=== PATIENT | female | born 1965 | race Caucasian/White ===

== ENCOUNTER 2025-03-28 07:51 | Inpatient (IN) ==
[2025-03-28 08:10] LABS: ABG O2 HGB 71.7 % (95-100); ABG PCO2 44.0 mmHg (35-45); ABG PH 7.36 (7.35-7.45); BEecf -0.5 (-2.0-3.0); FI02 21.0 %; HCO3 24.9 (21-28); TCO2 26.3 (19-24)
[2025-03-28 08:11] LABS: ABG PO2 41.0 mmHg (85-100)
[2025-03-28] MEDS: LEVAQUIN 500 MG/100 ML D5W 500 MG/100 ML BAG IV ONE (08:11)
[2025-03-28] MEDS: SOLU-MEDROL 125 MG IVP ONE (08:11)
[2025-03-28] MEDS: DUONEB NEB STA (08:16)
[2025-03-28 08:19] LABS: IMMATURE GRANULOCYTE # (AUTO) 0.1 (0.0-1.0); IMMATURE GRANULOCYTE % (AUTO) 0.7 % (0.0-5.0); RDW COEFFICIENT OF VARIATION 14.4 % (11.6-14.8)
[2025-03-28 08:38] LABS: CREATININE 1.39 mg/dL (0.60-1.30)
--- NOTE | 2025-03-28 08:43 | DI ---
EXAM: CHEST RADIOGRAPH TECHNIQUE: Single frontal chest radiograph. HISTORY: COPD. COMPARISON: Chest with ribs study of 01/01/2022. FINDINGS: Lungs are hyperinflated and hyperlucent. Prominent interstitial markings are likely chronic. No nodule or mass or consolidation. No free air below the diaphragm. Heart does appear prominent and similar. Mediastinum is normal. Airway is patent and midline. There is no pleural effusion. There is no pneumothorax. Postoperative changes of the humeral head on the right. There are bony degenerative changes of the spine and shoulders and AC joints. No acute bony abnormality is seen. IMPRESSION: 1. Mild cardiac enlargement is similar to prior. 2. Lungs are hyper inflated and hyperlucent. Prominent interstitial markings likely chronic. No well-defined infiltrate or new acute process otherwise. Details and other findings, as above.
[2025-03-28] MEDS: SODIUM CHLORIDE 1,000 ML IV ONE ×3 (08:53→15:36)
[2025-03-28] MEDS: VISIPAQUE 320 MG/ML 100ML IVP ONE (09:43)
[2025-03-28 09:45] LABS: SARS COV-2 RNA RAPID NAAT NEGATIVE (NEGATIVE)
--- NOTE | 2025-03-28 10:21 | ED.PDOC ---
General HPI ED Provider: Dr. MELANIE BHAKTA MD Chief Complaint: Shortness of Air Stated Complaint: 59 years old female history of hypertension, COPD, emergency room for shortness of breath. Patient reports that she had been feeling short of breath have gotten progressively worse over the last couple days so she comes emergency room for evaluation. Patient denies any fever, chest pain no nausea or vomiting no changes in bowel or urine. Time Seen by Provider: 03/28/25 07:59 Information Source: Patient Nursing and Triage Documentation Reviewed and Agree: Yes Opioid Naive vs. Tolerant What is Opioid Naive?: *Opioid Naive implies the patient is not already taking opioids or not chronically receiving opioids on a daily basis. *PRN dosing is not "usually" associated with tolerance. *Patients are at higher risk of over-sedation and aspiration. What is Opioid Tolerant?: *Opioid Tolerance implies less than the expected response to an opioid. *Acquired tolerance is defined by the patient taking 60mg of oral morphine daily (or equianalgesic dose of another opioid) for 1 week or more. *Often associated with chronic pain. *May take more than usual dose to achieve desired pain control. Review of Systems Review Of Systems Constitutional: Reports No symptoms All Other Systems: Reviewed and Negative Physical Exam Physical Exam Appearance: Reports Ill-appearing Ill-appearing: Mild Respiratory: Reports Breath sounds diminished and Wheezes Cardiovascular: Reports RRR, Pulses normal, No rub and No murmur GI/: Reports Soft, Nontender, No masses and Bowel sounds normal Musculoskeletal: Reports Normal strength and ROM intact Skin: Reports Warm and Normal color Neurological: Reports Sensation intact, Motor intact and Reflexes intact Psychiatric: Reports Affect appropriate Interpretation EKG Interpretation EKG Interpretation By: ED Physician Time of EKG #1: 08:26 Rate: Normal Rhythm: Sinus Ectopy: None [place]: NL ST Segment: Normal Interpretation: NO SINGS OF ACUTE ISCHEMIA Course Course 03/28/25 08:13 03/28/25 08:13 Orders, Labs, Meds: Lab Review 03/28/25 03/28/25 03/28/25 08:07 08:13 08:50 WBC 16.02 H RBC 4.70 Hgb 13.3 Hct 41.4 MCV 88.1 MCH 28.3 MCHC 32.1 RDW Coeff of Sammie 14.4 Plt Count 306 Immature Gran % (Auto) 0.7 Neut % (Auto) 81.8 H Lymph % (Auto) 7.6 L Kerr % (Auto) 9.0 Eos % (Auto) 0.2 Baso % (Auto) 0.7 Neut # (Auto) 13.1 H Lymph # (Auto) 1.2 Kerr # (Auto) 1.4 Eos # (Auto) 0.0 Baso # (Auto) 0.1 Immature Gran # (Auto) 0.1 Puncture Site [place] Excess -0.5 O2 Saturation 73.9 L ABG pH 7.36 ABG pCO2 44.0 ABG pO2 41.0 L* ABG HCO3 24.9 ABG Total CO2 26.3 H Flash Test Pos Hemoglobin 1.5 Oxyhemoglobin 71.7 L Carboxyhemoglobin 4.9 H Total Hemoglobin 13.8 FiO2 % 21.0 Sodium 128.9 L Potassium 3.96 Chloride 86.2 L Carbon Dioxide 29.1 Anion Gap 17.56 BUN 30.3 H Creatinine 1.39 H Estimated GFR (MDRD) 39.00 BUN/Creatinine Ratio 21.79 Glucose 158.2 H Calcium 9.51 Total Bilirubin 0.64 AST 41.8 H ALT 30.4 Alkaline Phosphatase 147.8 H Troponin I 0.025 NT-Pro-B Natriuret Pep 1710 H Total Protein 8.15 Albumin 4.51 Globulin 3.64 Albumin/Globulin Ratio 1.23 SARS CoV-2 RNA Rapid MARIE 03/28/25 09:25 WBC RBC Hgb Hct MCV MCH MCHC RDW Coeff of Sammie Plt Count Immature Gran % (Auto) Neut % (Auto) Lymph % (Auto) Kerr % (Auto) Eos % (Auto) Baso % (Auto) Neut # (Auto) Lymph # (Auto) Kerr # (Auto) Eos # (Auto) Baso # (Auto) Immature Gran # (Auto) Puncture Site Base Excess O2 Saturation ABG pH ABG pCO2 ABG pO2 ABG HCO3 ABG Total CO2 Flash Test Hemoglobin Oxyhemoglobin Carboxyhemoglobin Total Hemoglobin FiO2 % Sodium Potassium Chloride Carbon Dioxide Anion Gap BUN Creatinine Estimated GFR (MDRD) BUN/Creatinine Ratio Glucose Calcium Total Bilirubin AST ALT Alkaline Phosphatase Troponin I NT-Pro-B Natriuret Pep Total Protein Albumin Globulin Albumin/Globulin Ratio SARS CoV-2 RNA Rapid MARIE Negative Orders Category Date Time Status ABG DRAW REQUEST Stat CARDIO 03/28/25 08:00 Completed EKG-(ED ONLY) Stat CARDIO 03/28/25 08:08 Completed NEBULIZER TREATMENT Stat CARDIO 03/28/25 07:59 Completed NPO REMINDER: IMAGING ONCE CARE 03/28/25 09:22 Active IV [ED IV/MEDIPORT/POWERPORT] .ONCE EMERGENCY 03/28/25 07:59 Active ABG COOX Stat LAB 03/28/25 08:07 Completed CBC W/ AUTO DIFF Stat LAB 03/28/25 08:13 Completed CMP [COMPREHENSIVE METABOLIC PANEL] Stat LAB 03/28/25 08:13 Completed PROBNP ED [NT-PROBNP(ED)] Stat LAB 03/28/25 08:50 Completed SARS COV-2 RNA RAPID MARIE Stat LAB 03/28/25 09:25 Completed TROPONIN I Stat LAB 03/28/25 08:13 Completed 0.9 % Sodium Chloride [Saline Flush] Meds 03/28/25 07:59 Active 1 syr IVF PRN PRN Iodixanol [Visipaque 320 mg/ml 100Ml] Meds 03/28/25 09:42 Discontinued 100 ml IVP ONCE ONE Ipratropium/Albuterol Neb [Duoneb] Meds 03/28/25 07:59 Discontinued 3 ml NEB ONCE STA Levofloxacin/D5w [Levaquin 500 mg/100 ml D5w] Meds 03/28/25 08:06 Discontinued 500 mg in 100 ml IV ONCE Methylprednisolone Sod Succ/Pf [Solu-Medrol 125 mg] Meds 03/28/25 07:59 Discontinued 125 mg IVP ONCE ONE Sodium Chloride 0.9% [Sodium Chloride] 1,000 ml Meds 03/28/25 08:47 Discontinued IV BOLUS CTA CHEST PE PROTOCOL Stat RADS 03/28/25 09:21 Ordered CXR [CHEST, 1V AP ONLY] Stat RADS 03/28/25 07:59 Completed Medications Generic Name Dose Route Start Last Admin Trade Name Freq PRN Reason Stop Dose Admin Sodium Chloride 1 syr 03/28/25 07:59 03/28/25 08:53 0.9% Sodium Chloride 10 Ml Disp.Syrin IVF 1 syr PRN PRN Administration To flush IV Discontinued Medications Generic Name Dose Route Start Last Admin Trade Name Freq PRN Reason Stop Dose Admin Albuterol/Ipratropium 3 ml 03/28/25 07:59 03/28/25 08:16 Ipratropium/Albuterol Vial.Neb NEB 03/28/25 08:00 3 ml ONCE STA Administration Levofloxacin/Dextrose 500 mg in 100 mls @ 100 mls/hr 03/28/25 08:06 03/28/25 08:11 Levaquin 500 Mg/100 Ml D5w IV 03/28/25 09:05 100 mls/hr ONCE ONE Administration Sodium Chloride 1,000 mls @ 1,000 mls/hr 03/28/25 08:47 03/28/25 08:53 Sodium Chloride IV 03/28/25 09:46 1,000 mls/hr BOLUS ONE Administration Iodixanol 100 ml 03/28/25 09:42 03/28/25 09:43 Iodixanol 320 Mg/Ml 100ml IVP 03/28/25 09:43 100 ml ONCE ONE Administration Methylprednisolone Sodium Succinate 125 mg 03/28/25 07:59 03/28/25 08:11 Methylprednisolone Sod Succ/Pf 125 Mg/2 Ml Vial IVP 03/28/25 08:00 125 mg ONCE ONE Administration Vital Signs: Temp Pulse Resp BP Pulse Ox O2 Flow Rate 03/28/25 08:30 4 03/28/25 08:00 2 03/28/25 07:59 99.0 F 103 H 33 H 109/69 57 L Patient with COPD exacerbation, chest x-ray did not show any acute cardiopulmonary disease, hyperinflated lungs consistent with COPD as per otology interpretation. Patient also showing some signs of dehydration and hyponatremia NEY she received 500 cc of NS bolus. Patient received Solu-Medrol, DuoNeb nebulizer treatment and 500 mg of Levaquin. Spoke with hospitalist on-call Plac[facility] to admit patient for further management to recommend to get a CTA of the chest to rule out PE which was ordered received a call from radiology that the CT is negative for PE but there is some infectious process concerning for pneumonia. Results were discussed with the hospitalist and she agreed to make the patient under our services for further management. Discharge Plan Discharge Patient Disposition: PLACED OBSERVATION Discharge Problem: Pneumonia, Acute exacerbation of chronic obstructive pulmonary disease (COPD) Did you review [place] [employer] for ALL controlled substances?: Not Applicable ED Provider: MELANIE BHAKTA Condition: Stable
--- NOTE | 2025-03-28 10:41 | CT ---
EXAM: CHEST CTA WITH CONTRAST (PULMONARY ARTERY) HISTORY: Hypoxia. Tachycardia. Shortness of breath. TECHNIQUE: CTA acquisition of the chest from the thoracic inlet to the upper abdomen following IV contrast administration timed to filling of the pulmonary artery. IV Contrast: 70 mL Visipaque 320 administered. 3D/MIP/VR images were utilized. CT Dose Reduction Techniques Employed: Yes. COMPARISON: Chest x-ray of 03/28/2025. CT thoracic spine 01/01/2022. FINDINGS: Pulmonary Embolism: - Diagnostic quality: Adequate. - Central (Main/Lobar/Interlobar): No embolus. - Peripheral (Segmental/Subsegmental): Mild motion artifact does limit some of the subsegmental vessels within the upper lungs bilaterally. No other evidence for segmental or subsegmental embolism. - Right ventricle/Left ventricle ratio: Normal. Lines, Tubes, Devices: None. Lung Parenchyma and Airways: Airway is patent and midline. There may be some thickening of the airways to the lower lobes bilaterally. No filling defect or obstruction. Numerous tree in bud opacities are seen throughout the lungs bilaterally. Mild atelectasis at least at the lung bases bilaterally. Calcified granuloma in the lower lung on the left. Atelectatic type change or Possible scarring within the anterior upper lung on the last on some atelectasis or minimal infiltrate within the lingula. There is some atelectasis or minimal infiltrate anterior upper lung on the range. This is also seen within the lower lung on the right. A well-defined stand alone nodule is not seen. No other consolidation or evidence for mass. Pleural Space: No pleural effusion or thickening. No pneumothorax. Thoracic Inlet, Mediastinum, and [place]: The thyroid demonstrates Possible calcification on the left. Please correlate clinically and with nonemergent thyroid ultrasound. The esophagus appears to be overall within normal limits and is contracted. There is a trace fat-containing hiatal hernia. There are numerous abnormal lymph nodes within the chest. 1 of the anus in the subcarinal region measures 2.6 x 1.5 cm. There is also 1 within the hilar region on the right measuring 2.3 x 2.2 cm. There are other hilar lymph nodes mature borderline to mildly prominent. Pretracheal lymph node on the right measures 1.7 cm. AP window lymph node is prominent on the left 1.0 x 3.5 cm. These could be reactive and should be correlated clinically. Heart, Vessels, and Pericardium: The thoracic aorta is not dilated. Grade vessels appear within normal limits. Atherosclerotic aortic arch. No intramural hemorrhage is seen. Heart is borderline to mildly prominent without pericardial fluid. No significant coronary artery calcifications. Bones and Soft Tissues: There are degenerative changes throughout the spine with endplate and facet joint and degenerative disc changes. Degenerative changes of the bilateral shoulders. Old incompletely healed rib fractures sixth and seventh left ribs. New fracture or dislocation is not seen. No lytic or blastic lesion is identified. Soft tissues not demonstrate further abnormality. Upper limits of normal lymph nodes in the axilla. Upper Abdomen: Mild fatty infiltration of the liver with focal fatty infiltration adjacent to the falciform ligament. Gallbladder is distended but appears normal. Common bile duct tapers normally. Acute processes otherwise is not seen within the abdomen. IMPRESSION: 1. Normal CT pulmonary angiogram with no evidence of pulmonary artery embolism. The very distal subsegmental vessels within the upper lungs are limited. 2. Tree-in-bud opacities throughout the lungs bilaterally are most consistent with an infectious or inflammatory process. There is some mild prominence of the wall of the airways particularly within the lower lobes which may be infectious or inflammatory. There are some areas of likely atelectatic change within the lungs bilaterally. Minimal early infiltrates bilaterally are not completely excluded as described above. 3. No dominant nodule or mass is otherwise seen within the chest. There are prominent lymph nodes in the mediastinal and hilar regions most likely reactive. 4. Mild vascular calcification without aortic aneurysm or dissection. Heart is upper limits of normal to mildly prominent without pericardial fluid. No significant coronary artery calcifications. 5. Calcification of the thyroid on the left. Please correlate clinically and with non emergent thyroid ultrasound as clinically indicated. 6. Details and other incidental findings, as above. Findings are discussed withDr. Martin in the emergency department on 03/28/2025 at 10:32 a.m., with verification. All CT scans are performed using dose optimization techniques as appropriate to the performed exam and include at least one of the following: Automated exposure control, adjustment of the mA and/or kV according to size, and the use of iterative reconstruction technique.
[2025-03-28] MEDS ORDERED: ALBUTEROL 0.083% NEB NEB PRN (11:52)
[2025-03-28] MEDS: DUONEB NEB SCH (12:03)
[2025-03-28] MEDS ORDERED: NORCO 10-325 PO PRN (12:26)
--- NOTE | 2025-03-28 12:33 | PCM ---
Date of Service Date Seen by Provider: 03/28/25 Time Seen by Provider: 12:15 Admit Day/Time Admission Date: 03/28/25 Admission Time: 10:30 Reason for Admission Chief Complaint: COPD,PNEUMONIA Hospital Provider Hospital [facility] History of Present Illness History of Present Illness: 59 yo female with pmh of htn, chronic pain, and anxiety presented to the ER with shortness of breath. States she has not felt well over the last 5 days or so with a productive cough. Reports it being productive with green sputum. Denies fever that she is aware of. Shortness of breath started yesterday and progressively worsened. Upon arrival to ER, O2 sat was found to be 57%. HR 103 and RR 33. She was placed on 2L and then 4L. Documented sats of 88%. Chest xray was clear. PO2 was in 40s on ABG. White count found to be 16. She was given 1 duoneb, steroids, and levaquin. Upon arrival to the floor, patient was alert and oriented x3 and O2 sat was remaining at 86%. Duoneb was given. High flow nasal canula applied at 6L. O2 sat increased to 96%. Admitted to med/surg inpatient. Case Discussed With Case Discussed With: Patient's case was discussed with the ER Physicians, Dr. Martin. [facility] Medical History (Updated 03/28/25 @ 12:40 by ECHO TURNER) Chronic pain G89.29 - Other chronic pain (ICD-10) Anxiety F41.9 - Anxiety disorder, unspecified (ICD-10) Hypertension I10 - Essential (primary) hypertension (ICD-10) Surgical History H/O rotator cuff surgery Right Z98.890 - Other specified postprocedural states (ICD-10) No history of previous surgery Social History Smoking and tobacco status: Current every day smoker Tobacco type: cigarettes Smoking packs per day: 1 Smoking cigarettes per day: 20.0 Years smoked: 46 Smoking pack-years: 46.00 Tobacco: How many years used: 46 Passive smoking exposure: No Quit status: considering quitting Second hand smoke exposure: No Smoking risk assessment performed: Yes Alcohol intake: former Year quit: 2004 Counseling given: No Counseling provided: none Substance use type: does not use Caregiver/support person: Yes Marital status: M Number of children: 6 Number of grandchildren: 16 Highest education level completed: high school graduate Allergies Allergies Allergy/AdvReac Type Severity Reaction Status Date / Time morphine AdvReac Verified 03/28/25 08:08 Current Medications Home Medications Hydrocodone Bitart/Acetaminophen (Hydrocodone Bit/Acetaminophen 10/325 Mg Tablet) 1 tab PO QID PRN On Hold: 03/28/25 12:26 PRN Reason: Pain Albuterol Sulfate (Albuterol Sulfate 0.083% Vial.Neb) 2.5 mg NEB RTQ4H PRN PRN Reason: Wheezing Albuterol/Ipratropium (Ipratropium/Albuterol Vial.Neb) 3 ml NEB RTQ4H JANET Last Admin: 03/28/25 15:20 Dose: Not Given Amlodipine Besylate (Amlodipine Besylate 5 Mg Tablet) 2.5 mg PO DAILY JANET Aripiprazole (Aripiprazole 5 Mg Tablet) 2.5 mg PO DAILY JANET Diazepam (Diazepam 5 Mg Tablet) 5 mg PO TID JANET On Hold: 03/28/25 15:00 Duloxetine HCl (Duloxetine Hcl 30 Mg Capsule.Dr) 120 mg PO BEDTIME JANET Enoxaparin Sodium (Enoxaparin Sodium 40 Mg/0.4 Ml Syr) 40 mg SUBCUT DAILY [facility] Last Admin: 03/28/25 14:03 Dose: 40 mg Gabapentin (Gabapentin 300 Mg Capsule) 600 mg PO TID JANET On Hold: 03/28/25 15:00 CEFTRIAXONE/D5W 1 GM PREMIX (Rocephin 1 Gm/50 Ml D5w) 1 gm in 50 mls @ 100 mls/hr IV DAILY [facility] Stop: 03/31/25 12:29 Last Admin: 03/28/25 13:50 Dose: 100 mls/hr Sodium Chloride (Sodium Chloride) 1,000 mls @ 75 mls/hr IV .[id number] [facility] Last Admin: 03/28/25 16:46 Dose: 75 mls/hr Doxycycline Hyclate 100 mg/ (Sodium Chloride) 100 mls @ 50 mls/hr IV Q12HR [facility] Stop: 03/31/25 20:59 Lisinopril (Lisinopril 40 Mg Tablet) 40 mg PO DAILY [facility] Methylprednisolone Sodium Succinate (Methylprednisolone Sod Succ/Pf 40 Mg/Ml Vial) 40 mg IVP Q8HR JANET Last Admin: 03/28/25 15:31 Dose: 40 mg Sodium Chloride (0.9% Sodium Chloride 10 Ml Disp.Syrin) 1 syr IVF PRN PRN PRN Reason: To flush IV Last Admin: 03/28/25 08:53 Dose: 1 syr amlodipine 2.5 mg tablet 2.5 mg PO DAILY 03/28/25 [History Confirmed 03/28/25] aripiprazole 2 mg tablet (Abilify) 2 mg PO DAILY 03/28/25 [History Confirmed 03/28/25] bupropion HCl 150 mg 24 hr tablet, extended release (Wellbutrin XL) 150 mg PO DAILY 03/28/25 [History Confirmed 03/28/25] cholecalciferol (vitamin D3) 1,250 mcg (50,000 unit) capsule 50,000 unit PO QWEEK 03/28/25 [History Confirmed 03/28/25] diazepam 5 mg tablet (Valium) 5 mg PO TID 03/28/25 [History Confirmed 03/28/25] duloxetine 60 mg capsule,delayed release 120 mg PO BEDTIME 03/28/25 [History Confirmed 03/28/25] gabapentin 600 mg tablet 600 mg PO TID 03/28/25 [History Confirmed 03/28/25] hydrocodone 10 mg-acetaminophen 325 mg tablet 1 tab PO QID 03/28/25 [History Confirmed 03/28/25] lisinopril 40 mg tablet 40 mg PO DAILY 03/28/25 [History Confirmed 03/28/25] Opioid Naive vs. Tolerant Does Patient Take Opioids?: Yes Is Patient Opioid Naive?: No What is Opioid Naive?: *Opioid Naive implies the patient is not already taking opioids or not chronically receiving opioids on a daily basis. *PRN dosing is not "usually" associated with tolerance. *Patients are at higher risk of over-sedation and aspiration. Is Patient Opioid Tolerant?: No What is Opioid Tolerant?: *Opioid Tolerance implies less than the expected response to an opioid. *Acquired tolerance is defined by the patient taking 60mg of oral morphine daily (or equianalgesic dose of another opioid) for 1 week or more. *Often associated with chronic pain. *May take more than usual dose to achieve desired pain control. Review of Systems Constitutional: Reports Weakness; Denies Fever, Chills or Sweats Head: Reports Normocephalic and Atraumatic Eyes: Reports No symptoms Ears: Reports No symptoms Nose: Reports No symptoms Mouth: Reports No symptoms Throat: Reports No symptoms Cardiovascular: Denies Chest pain, Edema or Palpitations Respiratory: Reports Cough (green sputum) and Shortness of air Gastrointestinal: Reports No symptoms; Denies Nausea, Vomiting or Diarrhea Genitourinary: Reports No Symptoms Musculoskeletal: Reports No symptoms Endocrine: Reports No symptoms Hematology: Reports No symptoms Immunology: Reports No symptoms Neurological: Reports No symptoms Psychiatric: Reports No symptoms Physical examination Most Recent Vital Signs: Most Recent Vital Signs Temperature 97.4 F L 03/28/25 11:41 Temperature Source Temporal Artery Scan 03/28/25 11:41 Temperature Source Infrared 03/28/25 07:59 Pulse Rate 96 03/28/25 11:41 Respiratory Rate 22 H 03/28/25 11:41 Blood Pressure 109/69 03/28/25 07:59 Blood Pressure Right Arm 140/93 03/28/25 11:41 Blood Pressure Position Sitting 03/28/25 11:41 O2 Sat by Pulse Oximetry 86 L 03/28/25 12:16 Oxygen Delivery Method Nasal Cannula 03/28/25 12:16 Oxygen Flow Rate 4 03/28/25 12:16 Height 5 ft 03/28/25 11:41 Weight 11.521 kg 03/28/25 11:41 Appearance: Positive Alert and Oriented x3 and Ill-Appearing Skin: Positive Warm HEENT: Positive Normocephalic and PERRLA Neck: Positive Supple and Midline Trachea Chest/Lungs: Positive Symmetrical With Equal Breath Sounds, Rhonci, Wheezes and Other (severely diminished) Heart: Positive RRR and Pulses Normal; Negative Irregular Rhythm, Tachycardia or Bracycardia GI/: Positive Soft, Nontender, Bowel Sounds Normal and No Distention Musculoskeletal: Positive Not Examined Extremities: Positive Intact Peripheral Pulses, Stable Joints Without Laxity and Good ROM in All Joints; Negative Edema Neurological: Positive Sensation Intact, Motor intact, Reflexes Intact, Alert and Oriented Labs This Visit Labs This Visit: Labs This Visit 03/28/25 03/28/25 03/28/25 08:07 08:13 08:50 WBC 16.02 H RBC 4.70 Hgb 13.3 Hct 41.4 MCV 88.1 MCH 28.3 MCHC 32.1 RDW Coeff of Sammie 14.4 Plt Count 306 Immature Gran % (Auto) 0.7 Neut % (Auto) 81.8 H Lymph % (Auto) 7.6 L Stanley % (Auto) 9.0 Eos % (Auto) 0.2 Baso % (Auto) 0.7 Neut # (Auto) 13.1 H Lymph # (Auto) 1.2 Stanley # (Auto) 1.4 Eos # (Auto) 0.0 Baso # (Auto) 0.1 Immature Gran # (Auto) 0.1 Puncture Site [place] Excess -0.5 O2 Saturation 73.9 L ABG pH 7.36 ABG pCO2 44.0 ABG pO2 41.0 L* ABG HCO3 24.9 ABG Total CO2 26.3 H Flash Test Pos Hemoglobin 1.5 Oxyhemoglobin 71.7 L Carboxyhemoglobin 4.9 H Total Hemoglobin 13.8 FiO2 % 21.0 Sodium 128.9 L Potassium 3.96 Chloride 86.2 L Carbon Dioxide 29.1 Anion Gap 17.56 BUN 30.3 H Creatinine 1.39 H Estimated GFR (MDRD) 39.00 BUN/Creatinine Ratio 21.79 Glucose 158.2 H Calcium 9.51 Total Bilirubin 0.64 AST 41.8 H ALT 30.4 Alkaline Phosphatase 147.8 H Troponin I 0.025 NT-Pro-B Natriuret Pep 1710 H Total Protein 8.15 Albumin 4.51 Globulin 3.64 Albumin/Globulin Ratio 1.23 SARS CoV-2 RNA Rapid MARIE 03/28/25 09:25 WBC RBC Hgb Hct MCV MCH MCHC RDW Coeff of Sammie Plt Count Immature Gran % (Auto) Neut % (Auto) Lymph % (Auto) Stanley % (Auto) Eos % (Auto) Baso % (Auto) Neut # (Auto) Lymph # (Auto) Stanley # (Auto) Eos # (Auto) Baso # (Auto) Immature Gran # (Auto) Puncture Site Base Excess O2 Saturation ABG pH ABG pCO2 ABG pO2 ABG HCO3 ABG Total CO2 Flash Test Hemoglobin Oxyhemoglobin Carboxyhemoglobin Total Hemoglobin FiO2 % Sodium Potassium Chloride Carbon Dioxide Anion Gap BUN Creatinine Estimated GFR (MDRD) BUN/Creatinine Ratio Glucose Calcium Total Bilirubin AST ALT Alkaline Phosphatase Troponin I NT-Pro-B Natriuret Pep Total Protein Albumin Globulin Albumin/Globulin Ratio SARS CoV-2 RNA Rapid MARIE Negative Imaging Imaging: EXAM: CHEST RADIOGRAPH TECHNIQUE: Single frontal chest radiograph. HISTORY: COPD. COMPARISON: Chest with ribs study of 01/01/2022. FINDINGS: Lungs are hyperinflated and hyperlucent. Prominent interstitial markings are likely chronic. No nodule or mass or consolidation. No free air below the diaphragm. Heart does appear prominent and similar. Mediastinum is normal. Airway is patent and midline. There is no pleural effusion. There is no pneumothorax. Postoperative changes of the humeral head on the right. There are bony degenerative changes of the spine and shoulders and AC joints. No acute bony abnormality is seen. IMPRESSION: 1. Mild cardiac enlargement is similar to prior. 2. Lungs are hyper inflated and hyperlucent. Prominent interstitial markings likely chronic. No well-defined infiltrate or new acute process otherwise. Details and other findings, as above. EXAM: CHEST CTA WITH CONTRAST (PULMONARY ARTERY) COMPARISON: Chest x-ray of 03/28/2025. CT thoracic spine 01/01/2022. FINDINGS: Pulmonary Embolism: - Diagnostic quality: Adequate. - Central (Main/Lobar/Interlobar): No embolus. - Peripheral (Segmental/Subsegmental): Mild motion artifact does limit some of the subsegmental vessels within the upper lungs bilaterally. No other evidence for segmental or subsegmental embolism. - Right ventricle/Left ventricle ratio: Normal. Lines, Tubes, Devices: None. Lung Parenchyma and Airways: Airway is patent and midline. There may be some thickening of the airways to the lower lobes bilaterally. No filling defect or obstruction. Numerous tree in bud opacities are seen throughout the lungs bilaterally. Mild atelectasis at least at the lung bases bilaterally. Calcified granuloma in the lower lung on the left. Atelectatic type change or Possible scarring within the anterior upper lung on the last on some atelectasis or minimal infiltrate within the lingula. There is some atelectasis or minimal infiltrate anterior upper lung on the range. This is also seen within the lower lung on the right. A well-defined stand alone nodule is not seen. No other consolidation or evidence for mass. Pleural Space: No pleural effusion or thickening. No pneumothorax. Thoracic Inlet, Mediastinum, and Liyah: The thyroid demonstrates Possible calcification on the left. Please correlate clinically and with nonemergent thyroid ultrasound. The esophagus appears to be overall within normal limits and is contracted. There is a trace fat-containing hiatal hernia. There are numerous abnormal lymph nodes within the chest. 1 of the anus in the subcarinal region measures 2.6 x 1.5 cm. There is also 1 within the hilar region on the right measuring 2.3 x 2.2 cm. There are other hilar lymph nodes mature borderline to mildly prominent. Pretracheal lymph node on the right measures 1.7 cm. AP window lymph node is prominent on the left 1.0 x 3.5 cm. These could be reactive and should be correlated clinically. Heart, Vessels, and Pericardium: The thoracic aorta is not dilated. Grade vessels appear within normal limits. Atherosclerotic aortic arch. No intramural hemorrhage is seen. Heart is borderline to mildly prominent without pericardial fluid. No significant coronary artery calcifications. Bones and Soft Tissues: There are degenerative changes throughout the spine with endplate and facet joint and degenerative disc changes. Degenerative changes of the bilateral shoulders. Old incompletely healed rib fractures sixth and seventh left ribs. New fracture or dislocation is not seen. No lytic or blastic lesion is identified. Soft tissues not demonstrate further abnormality. Upper limits of normal lymph nodes in the axilla. Upper Abdomen: Mild fatty infiltration of the liver with focal fatty infiltration adjacent to the falciform ligament. Gallbladder is distended but appears normal. Common bile duct tapers normally. Acute processes otherwise is not seen within the abdomen. IMPRESSION: 1. Normal CT pulmonary angiogram with no evidence of pulmonary artery embolism. The very distal subsegmental vessels within the upper lungs are limited. 2. Tree-in-bud opacities throughout the lungs bilaterally are most consistent with an infectious or inflammatory process. There is some mild prominence of the wall of the airways particularly within the lower lobes which may be infectious or inflammatory. There are some areas of likely atelectatic change within the lungs bilaterally. Minimal early infiltrates bilaterally are not completely excluded as described above. 3. No dominant nodule or mass is otherwise seen within the chest. There are prominent lymph nodes in the mediastinal and hilar regions most likely reactive. 4. Mild vascular calcification without aortic aneurysm or dissection. Heart is upper limits of normal to mildly prominent without pericardial fluid. No significant coronary artery calcifications. 5. Calcification of the thyroid on the left. Please correlate clinically and with non emergent thyroid ultrasound as clinically indicated. 6. Details and other incidental findings, as above. Findings are discussed withDr. Martin in the emergency department on 03/28/2025 at 10:32 a.m., with verification. Review Statement Review Statement: I have independently reviewed and interpreted the labs/EKGs/imaging that were ordered by the ER provider. I have reviewed all outside records that are available currently in our EMR including imaging/notes/labs from previous visits. Plan Plan: 1. Acute Hypoxic Respiratory Failure in setting of CAP - currently requiring high flow, wean oxygen as tolerated for goal O2 sat minimum of 90% due to extensive smoking history, duonebs Q4H and albuterol Q4H prn - will adjust if needed, steroids 2. Sepsis in setting of CAP - meets criteria due to HR, RR, and wbcs, blood cultures ordered, abx and IV fluids given 3. CAP - rocephin, doxy, steroids, nebs, mrsa, strep pneumo, legionella, and sputum culture ordered 4. Dehydration - appears mild, no previous labs to compare, will gently hydrate with NS@75mL/hr 5. Hyponatremia - mild, likely due to #3, IV fluids, will order osmolalities 6. HTN - chronic, continue home medications DVT Prophylaxis: Lovenox Time Spent: Greater than 80 minutes spent with patient, 50% of the time spent with this patient was devoted to counseling and coordination of care. [facility]annin minutes spent discussing advance care planning. Smoking Cessation: 3-10 minutes spent discussing smoking cessation. Disposition: Admit to: Med/Surg Inpatient Full Code Discussed Plan of Care with Dr. Dg Henderson. Medications Medication Orders: Medications Ordered Category Date Time Status 0.9 % Sodium Chloride [Saline Flush] Meds 03/28/25 07:59 Active 1 syr IVF PRN PRN Albuterol Sulfate 0.083% Neb [Albuterol 0.083% Neb] Meds 03/28/25 11:52 Active 2.5 mg NEB RTQ4H PRN Amlodipine Besylate [Norvasc] Meds 03/29/25 09:00 Ordered 2.5 mg PO DAILY Ceftriaxone/D5w 1 gm Premix [Rocephin 1 gm/50 ml D5w] Meds 03/28/25 12:30 Active 1 gm in 50 ml IV DAILY Diazepam [Valium] Meds 03/28/25 15:00 Ordered 5 mg PO TID Doxycycline Hyclate [Vibramycin] Meds 03/28/25 21:00 Active 100 mg PO Q12HR Duloxetine HCl [Cymbalta] Meds 03/28/25 21:00 Ordered 120 mg PO BEDTIME Enoxaparin Sodium [Lovenox] Meds 03/28/25 12:00 Active 40 mg SUBCUT DAILY Gabapentin [Neurontin] Meds 03/28/25 15:00 Ordered 600 mg PO TID Hydrocodone Bit/Acetaminophen [Vilas 10-325] Meds 03/28/25 12:26 Ordered 1 tab PO QID PRN PAIN Pain Ipratropium/Albuterol Neb [Duoneb] Meds 03/28/25 12:00 Active 3 ml NEB RTQ4H Lisinopril [Zestril] Meds 03/29/25 09:00 Ordered 40 mg PO DAILY Methylprednisolone Sod Succ/Pf [Solu-Medrol 40 mg] Meds 03/28/25 16:00 Active 40 mg IVP Q8HR aripiprazole [Abilify] Meds 03/29/25 09:00 Ordered 2 mg PO DAILY Additional Comments: Additional Comments: Nursing staff had provider come to room around 13:15. organic preparation technician in room collecting blood cultures and stated patient did not look or act like this when she was in ER. Patient found to be diaphoretic, lethargic, minimally responsive, and confused. O2 sat 95-96% on the monitor. ABG obtained. pH 7.21, PCO2 68. PO2 75% on 6L via high flow NC, HCO3 27.2. Orders given to initiate BIPAP at this time. Will repeat abg within 1 hour of initiating BIPAP. NPO.
[2025-03-28 13:14] VITALS: BMI 22.5
[2025-03-28] MEDS: SODIUM CHLORIDE 1,000 ML IV SCH (13:25)
[2025-03-28 13:28] LABS: ABG O2 HGB 90.9 % (95-100); ABG PO2 75.0 mmHg (85-100); BEecf -0.7 (-2.0-3.0); HCO3 27.2 (21-28); TCO2 29.3 (19-24)
[2025-03-28 13:29] LABS: ABG PH 7.21 (7.35-7.45)
[2025-03-28 13:30] LABS: ABG PCO2 68.0 mmHg (35-45)
[2025-03-28] MEDS: ROCEPHIN 1 GM/50 ML D5W 1 GM/50 ML BAG IV SCH (13:50)
[2025-03-28] MEDS: LOVENOX SUBCUT SCH (14:03)
[2025-03-28 14:14] LABS: OSMOLALITY 271.0 mOsm/kg (275-295)
[2025-03-28] MEDS ORDERED: NEURONTIN PO SCH (15:00)
[2025-03-28] MEDS ORDERED: VALIUM PO SCH (15:00)
[2025-03-28 15:22] LABS: ABG O2 HGB 89.9 % (95-100); ABG PO2 66.0 mmHg (85-100); BEecf -2.2 (-2.0-3.0); FI02 40.0 %; HCO3 26.0 (21-28); TCO2 28.1 (19-24)
[2025-03-28] MEDS: SOLU-MEDROL 40 MG IVP SCH (15:31)
[2025-03-28 16:43] LABS: ABG PCO2 68.0 mmHg (35-45); ABG PH 7.19 (7.35-7.45)
[2025-03-28 16:46] LABS: ABG O2 HGB 89.5 % (95-100); ABG PO2 66.0 mmHg (85-100); BEecf -4.8 (-2.0-3.0); FI02 40.0 %; HCO3 24.2 (21-28); TCO2 26.4 (19-24)
[2025-03-28 16:50] LABS: ABG PCO2 71.0 mmHg (35-45); ABG PH 7.14 (7.35-7.45)
[2025-03-28] MEDS: ANECTINE IVP ONE (17:40)
[2025-03-28] MEDS: AMIDATE IVP STA (17:40)
[2025-03-28] MEDS: VERSED IVP ONE ×2 (18:00)
--- NOTE | 2025-03-28 18:07 | DI ---
EXAM: SINGLE CHEST RADIOGRAPH HISTORY: tube verification COMPARISON: CTA chest 03/28/2025. FINDINGS/IMPRESSION: Endotracheal tube with distal tip terminating 5.1 cm above the evette. Cardiomediastinal silhouette is enlarged. Atherosclerosis in the aorta. Prominent interstitial markings. Atelectasis in the left lung base. No pneumothorax or large pleural effusions. Degenerative changes.
--- NOTE | 2025-03-28 18:08 | PCM.SS ---
Provider Provider: ECHO TURNER, [facility] Admission Date Admission Date: 03/28/25 Discharge Date Discharge Date: 03/28/25 Primary Care Physician Primary Care Physician: GALINA WHITE Chief Complaint Reason For Visit: COPD,PNEUMONIA History of Present Illness History of Present Illness: Admitted 03/28/25 10:34, this 59 year old /WHITE/F pmh of htn, chronic pain, and anxiety presented to the ER with shortness of breath. States she has not felt well over the last 5 days or so with a productive cough. Reports it being productive with green sputum. Denies fever that she is aware of. Shortness of breath started yesterday and progressively worsened. Upon arrival to ER, O2 sat was found to be 57%. HR 103 and RR 33. She was placed on 2L and then 4L. Documented sats of 88%. Chest xray was clear. PO2 was in 40s on ABG. White count found to be 16. She was given 1 duoneb, steroids, and levaquin. Upon arrival to the floor, patient was alert and oriented x3 and O2 sat was remaining at 86%. Duoneb was given. High flow nasal canula applied at 6L. O2 sat increased to 96%. Admitted to med/surg inpatient. [facility] Medical History Chronic pain G89.29 - Other chronic pain (ICD-10) Anxiety F41.9 - Anxiety disorder, unspecified (ICD-10) Hypertension I10 - Essential (primary) hypertension (ICD-10) Surgical History H/O rotator cuff surgery Right Z98.890 - Other specified postprocedural states (ICD-10) No history of previous surgery Social History Smoking and tobacco status: Current every day smoker Tobacco type: cigarettes Smoking packs per day: 1 Smoking cigarettes per day: 20.0 Years smoked: 46 Smoking pack-years: 46.00 Tobacco: How many years used: 46 Passive smoking exposure: No Quit status: considering quitting Second hand smoke exposure: No Smoking risk assessment performed: Yes Alcohol intake: former Year quit: 2004 Counseling given: No Counseling provided: none Substance use type: does not use Caregiver/support person: Yes Marital status: M Number of children: 6 Number of grandchildren: 16 Highest education level completed: high school graduate Medications Mecications: Medications at Discharge (Home Meds & RX) amlodipine 2.5 mg tablet 2.5 mg PO DAILY 03/28/25 aripiprazole 2 mg tablet (Abilify) 2 mg PO DAILY 03/28/25 bupropion HCl 150 mg 24 hr tablet, extended release (Wellbutrin XL) 150 mg PO DAILY 03/28/25 cholecalciferol (vitamin D3) 1,250 mcg (50,000 unit) capsule 50,000 unit PO QWEEK 03/28/25 diazepam 5 mg tablet (Valium) 5 mg PO TID 03/28/25 duloxetine 60 mg capsule,delayed release 120 mg PO BEDTIME 03/28/25 gabapentin 600 mg tablet 600 mg PO TID 03/28/25 hydrocodone 10 mg-acetaminophen 325 mg tablet 1 tab PO QID 03/28/25 lisinopril 40 mg tablet 40 mg PO DAILY 03/28/25 Allergies Allergies Allergy/AdvReac Type Severity Reaction Status Date / Time morphine AdvReac Verified 03/28/25 08:08 Review of Systems Constitutional: Reports Weakness; Denies Fever Head: Reports Normocephalic Eyes: Reports No symptoms Ears: Reports No symptoms Nose: Reports No symptoms Mouth: Reports No symptoms Throat: Reports No symptoms Cardiovascular: Reports No symptoms; Denies Chest pain, Edema or Palpitations Respiratory: Reports Cough (productive with green sputum) and Shortness of air Gastrointestinal: Reports No symptoms; Denies Nausea, Vomiting or Diarrhea Genitourinary: Reports No Symptoms Musculoskeletal: Reports No symptoms Endocrine: Reports No symptoms Hematology: Reports No symptoms Immunology: Reports No symptoms Neurological: Reports No symptoms Psychiatric: Reports No symptoms Physical Examination Appearance: Positive Alert and Oriented x3, Ill-Appearing and Thin Head: Positive Normocephalic Eyes: Positive Not Examined ENT: Positive Not Examined Neck: Positive Supple, Non-Tender and Trachea Midline Heart: Positive RRR and No Murmurs Respiratory: Positive Airway patent, Breath Sounds Equal, Rhonchi and Wheezes GI/: Positive Soft, Nontender, Bowel sounds normal and No Distention Extremities: Positive Pedal Pulses Palpable Bilaterally; Negative Edema Neurological: Positive Recent Memory Intact, Remote Memory Intact, Sensation Intact, Motor Intact, Reflexes Intact, Alert and Oriented; Negative Focal Deficit Vital Signs (Last 4 Hours) Vital Signs Last 4 Hours: Vital Signs: Last 4 Hours 03/28/25 14:46 03/28/25 14:59 03/28/25 15:05 Pulse Rate 60 58 L Respiratory Rate 12 Blood Pressure 76/40 L 86/42 L Blood Pressure Mean 52 56 Blood Pressure Location Left Arm Left Arm Blood Pressure Position Supine Supine O2 Sat by Pulse Oximetry 95 96 Oxygen Delivery Method Bi-pap Bi-pap Bi-pap Fraction of Inspired Oxygen (FIO2) 03/28/25 15:25 03/28/25 15:29 03/28/25 15:40 Pulse Rate Respiratory Rate Blood Pressure 88/64 L 92/58 L Blood Pressure Mean 72 69 Blood Pressure Location Left Arm Left Arm Blood Pressure Position Supine O2 Sat by Pulse Oximetry 97 Oxygen Delivery Method C-pap Bi-pap Fraction of Inspired Oxygen (FIO2) 40 Labs This Visit Labs This Visit: Labs This Visit 03/28/25 03/28/25 03/28/25 08:00 08:07 08:13 WBC 16.02 H RBC 4.70 Hgb 13.3 Hct 41.4 MCV 88.1 MCH 28.3 MCHC 32.1 RDW Coeff of Sammie 14.4 Plt Count 306 Immature Gran % (Auto) 0.7 Neut % (Auto) 81.8 H Lymph % (Auto) 7.6 L [place] % (Auto) 9.0 Eos % (Auto) 0.2 Baso % (Auto) 0.7 Neut # (Auto) 13.1 H Lymph # (Auto) 1.2 [place] # (Auto) 1.4 Eos # (Auto) 0.0 Baso # (Auto) 0.1 Immature Gran # (Auto) 0.1 Puncture Site [place] [employer] Excess -0.5 O2 Saturation 73.9 L ABG pH 7.36 ABG pCO2 44.0 ABG pO2 41.0 L* ABG HCO3 24.9 ABG Total CO2 26.3 H Flash Test Pos Hemoglobin 1.5 Oxyhemoglobin 71.7 L Carboxyhemoglobin 4.9 H Total Hemoglobin 13.8 O2 Delivery Device Oxygen Liter Flow FiO2 % 21.0 Sodium 128.9 L Potassium 3.96 Chloride 86.2 L Carbon Dioxide 29.1 Anion Gap 17.56 BUN 30.3 H Creatinine 1.39 H Estimated GFR (MDRD) 39.00 BUN/Creatinine Ratio 21.79 Glucose 158.2 H Serum Osmolality 271.0 L Calcium 9.51 Total Bilirubin 0.64 AST 41.8 H ALT 30.4 Alkaline Phosphatase 147.8 H Troponin I 0.025 NT-Pro-B Natriuret Pep Total Protein 8.15 Albumin 4.51 Globulin 3.64 Albumin/Globulin Ratio 1.23 Procalcitonin 0.60 H SARS CoV-2 RNA Rapid MARIE 03/28/25 03/28/25 03/28/25 08:50 09:25 13:17 WBC RBC Hgb Hct MCV MCH MCHC RDW Coeff of Sammie Plt Count Immature Gran % (Auto) Neut % (Auto) Lymph % (Auto) [place] % (Auto) Eos % (Auto) Baso % (Auto) Neut # (Auto) Lymph # (Auto) [place] # (Auto) Eos # (Auto) Baso # (Auto) Immature Gran # (Auto) Puncture Site [employer] Excess -0.7 O2 Saturation 91.4 L ABG pH 7.21 L* ABG pCO2 68.0 H ABG pO2 75.0 L ABG HCO3 27.2 ABG Total CO2 29.3 H Flash Test Pos Hemoglobin 1.8 H Oxyhemoglobin 90.9 L Carboxyhemoglobin 3.5 H Total Hemoglobin 12.4 O2 Delivery Device High flow Oxygen Liter Flow 6.00 FiO2 % Sodium Potassium Chloride Carbon Dioxide Anion Gap BUN Creatinine Estimated GFR (MDRD) BUN/Creatinine Ratio Glucose Serum Osmolality Calcium Total Bilirubin AST ALT Alkaline Phosphatase Troponin I NT-Pro-B Natriuret Pep 1710 H Total Protein Albumin Globulin Albumin/Globulin Ratio Procalcitonin SARS CoV-2 RNA Rapid MARIE Negative 03/28/25 03/28/25 15:19 16:42 WBC RBC Hgb Hct MCV MCH MCHC RDW Coeff of Sammie Plt Count Immature Gran % (Auto) Neut % (Auto) Lymph % (Auto) [place] % (Auto) Eos % (Auto) Baso % (Auto) Neut # (Auto) Lymph # (Auto) [place] # (Auto) Eos # (Auto) Baso # (Auto) Immature Gran # (Auto) Puncture Site [employer] [employer] Excess -2.2 L -4.8 L O2 Saturation 87.1 L 85.3 L ABG pH 7.19 L* 7.14 L* ABG pCO2 68.0 H 71.0 H ABG pO2 66.0 L 66.0 L ABG HCO3 26.0 24.2 ABG Total CO2 28.1 H 26.4 H Flash Test Pos Pos Hemoglobin 1.4 1.5 Oxyhemoglobin 89.9 L 89.5 L Carboxyhemoglobin 3.3 H 3.1 H Total Hemoglobin 11.1 L 11.4 L O2 Delivery Device Bipap Bipap Oxygen Liter Flow FiO2 % 40.0 40.0 Sodium Potassium Chloride Carbon Dioxide Anion Gap BUN Creatinine Estimated GFR (MDRD) BUN/Creatinine Ratio Glucose Serum Osmolality Calcium Total Bilirubin AST ALT Alkaline Phosphatase Troponin I NT-Pro-B Natriuret Pep Total Protein Albumin Globulin Albumin/Globulin Ratio Procalcitonin SARS CoV-2 RNA Rapid MARIE Imaging Imaging: EXAM: CHEST RADIOGRAPH TECHNIQUE: Single frontal chest radiograph. HISTORY: COPD. COMPARISON: Chest with ribs study of 01/01/2022. FINDINGS: Lungs are hyperinflated and hyperlucent. Prominent interstitial markings are likely chronic. No nodule or mass or consolidation. No free air below the diaphragm. Heart does appear prominent and similar. Mediastinum is normal. Airway is patent and midline. There is no pleural effusion. There is no pneumothorax. Postoperative changes of the humeral head on the right. There are bony degenerative changes of the spine and shoulders and AC joints. No acute bony abnormality is seen. IMPRESSION: 1. Mild cardiac enlargement is similar to prior. 2. Lungs are hyper inflated and hyperlucent. Prominent interstitial markings likely chronic. No well-defined infiltrate or new acute process otherwise. Details and other findings, as above. EXAM: CHEST CTA WITH CONTRAST (PULMONARY ARTERY) COMPARISON: Chest x-ray of 03/28/2025. CT thoracic spine 01/01/2022. FINDINGS: Pulmonary Embolism: - Diagnostic quality: Adequate. - Central (Main/Lobar/Interlobar): No embolus. - Peripheral (Segmental/Subsegmental): Mild motion artifact does limit some of the subsegmental vessels within the upper lungs bilaterally. No other evidence for segmental or subsegmental embolism. - Right ventricle/Left ventricle ratio: Normal. Lines, Tubes, Devices: None. Lung Parenchyma and Airways: Airway is patent and midline. There may be some thickening of the airways to the lower lobes bilaterally. No filling defect or obstruction. Numerous tree in bud opacities are seen throughout the lungs bilaterally. Mild atelectasis at least at the lung bases bilaterally. Calcified granuloma in the lower lung on the left. Atelectatic type change or Possible scarring within the anterior upper lung on the last on some atelectasis or minimal infiltrate within the lingula. There is some atelectasis or minimal infiltrate anterior upper lung on the range. This is also seen within the lower lung on the right. A well-defined stand alone nodule is not seen. No other consolidation or evidence for mass. Pleural Space: No pleural effusion or thickening. No pneumothorax. Thoracic Inlet, Mediastinum, and [place]: The thyroid demonstrates Possible calcification on the left. Please correlate clinically and with nonemergent thyroid ultrasound. The esophagus appears to be overall within normal limits and is contracted. There is a trace fat-containing hiatal hernia. There are numerous abnormal lymph nodes within the chest. 1 of the anus in the subcarinal region measures 2.6 x 1.5 cm. There is also 1 within the hilar region on the right measuring 2.3 x 2.2 cm. There are other hilar lymph nodes mature borderline to mildly prominent. Pretracheal lymph node on the right measures 1.7 cm. AP window lymph node is prominent on the left 1.0 x 3.5 cm. These could be reactive and should be correlated clinically. Heart, Vessels, and Pericardium: The thoracic aorta is not dilated. Grade vessels appear within normal limits. Atherosclerotic aortic arch. No intramural hemorrhage is seen. Heart is borderline to mildly prominent without pericardial fluid. No significant coronary artery calcifications. Bones and Soft Tissues: There are degenerative changes throughout the spine with endplate and facet joint and degenerative disc changes. Degenerative changes of the bilateral shoulders. Old incompletely healed rib fractures sixth and seventh left ribs. New fracture or dislocation is not seen. No lytic or blastic lesion is identified. Soft tissues not demonstrate further abnormality. Upper limits of normal lymph nodes in the axilla. Upper Abdomen: Mild fatty infiltration of the liver with focal fatty infiltration adjacent to the falciform ligament. Gallbladder is distended but appears normal. Common bile duct tapers normally. Acute processes otherwise is not seen within the abdomen. IMPRESSION: 1. Normal CT pulmonary angiogram with no evidence of pulmonary artery embolism. The very distal subsegmental vessels within the upper lungs are limited. 2. Tree-in-bud opacities throughout the lungs bilaterally are most consistent with an infectious or inflammatory process. There is some mild prominence of the wall of the airways particularly within the lower lobes which may be infectious or inflammatory. There are some areas of likely atelectatic change within the lungs bilaterally. Minimal early infiltrates bilaterally are not completely excluded as described above. 3. No dominant nodule or mass is otherwise seen within the chest. There are prominent lymph nodes in the mediastinal and hilar regions most likely reactive. 4. Mild vascular calcification without aortic aneurysm or dissection. Heart is upper limits of normal to mildly prominent without pericardial fluid. No significant coronary artery calcifications. 5. Calcification of the thyroid on the left. Please correlate clinically and with non emergent thyroid ultrasound as clinically indicated. 6. Details and other incidental findings, as above. Findings are discussed with Dr. Martin in the emergency department on 03/28/2025 at 10:32 a.m., with verification. Review Review Statement: I have independently reviewed and interpreted the labs/EKGs/imaging that were ordered by the ER provider. I have reviewed all outside records that are available currently in our EMR including imaging/notes/labs from previous visits. Plan Reccomendations/Plan: 1. Acute Hypoxic Respiratory Failure in setting of CAP - Initially patient was on 4L via NC. Upon arrival to the floor, patient was found to have an O2 sat of 86% and per [employer] had been running 86-88% in ER as well. She was then given a duoneb and high flow nasal canula was started at 6L. O2 sat improved to upper 90s. - Around 1315, lab was in room collecting blood cultures and came to get nurse. Reported patient was not in this state when she ahmet her labs earlier in the day. Patient was diaphoretic, lethargic, and confused. - ABG obtained revealing drop in pH and rise in CO2. She was then placed on BIPAP. - Repeat ABGs obtained and did not show improved. Adjustment of settings made. Repeat ABG obtained 1 hour later and continued to worsen. - Intubated at approximately 1745. Xray completed and ETT in appropriate position. - Continue nebs and serial abgs - Sedation: propofol 2. Sepsis in setting of CAP - met criteria due to HR, RR, and wbcs, blood cultures ordered, abx and 3L IV fluids given, continue NS@100mL/hr - Became hypotensive and required 3L boluses before improvement noted, no further hypotensive episodes 3. CAP - rocephin, doxy, steroids, nebs, mrsa, strep pneumo, legionella, and sputum culture ordered 4. Dehydration - records reveal previous creatinine of 0.9, 1.3 today, initially started fluids at 75mL/hr 5. Hyponatremia - mild, likely due to #4, IV fluids, osmolalities ordered due to no previous hx 6. HTN - chronic, continue home medications Additional Planning: Case discussed with ED Physician, Dr. Martin. DVT Prophylaxis: Lovenox Smoking Cessation: 3-10 minutes spent discussing smoking cessation. Disposition: Admit to: Med/Surg Inpatient Discussed Plan of Care with Dr. Dg Henderson. If patient discharged with Left Ventricular Systolic Dysfunction: NA Discharged with a beta sussy? [] If no, why not? [] Discharged with an gus/arb? [] If no, why not? [] Due to complexity of patient, higher level of care is needed. Transfer to [facility] Accepting provider: Dr. Lang Review With Patient Reviewed with Patient and Family: Patient and family have been counseled on condition and care plan and have no immediate questions. I have personally discussed and reviewed the patient's visit/current labs/imaging/decision making with Dr. Evelin Henderson, my supervising attending. Total number of minutes spent with patient 85 min. More than 50% of the time spent with this patient was devoted to counseling and coordination of care. Time of Admission: 03/28/25 10:34 Time of Discharge: 03/28/251940 Discharge Plan Discharge Discharge Orders: Discharge Patient (ONCE); Ordered 03/28/25 Ordered By: ROMINA BLACK Patient Disposition: TSF SHORT-TRM HOSP Did you review [place] [employer] for ALL controlled substances?: Yes Discussed opioids are addictive and Narcan is available by prescription or from pharmacy.: No Condition: Stable
[2025-03-28] MEDS: DIPRIVAN 1,000 MG/100 ML VIAL 1,000 MG/100 ML INFUS..BTL IV SCH (18:11)
[2025-03-28] MEDS: TRANSDERM-SCOP 1.5 MG PATCH TD ONE (18:15)
--- NOTE | 2025-03-28 18:50 | ED.PDOC ---
General [facility] ED Provider: Dr. SARATH TATE MD Chief Complaint: Shortness of Air Stated Complaint: Received call from floor at ~16:54 that pt was having worsening shortness of breath, hypercapnia, and respiratory acidosis confirmed via ABG despite increasing BiPap requirements necessitating intubation. RT at bedside confirmed all this info. Pt is currently alert and oriented and agreeable to intubation. Time Seen by Provider: 03/28/25 07:59 Information Source: Nurse and Other (RT (Jeannie)) Primary Care Provider: GALINA WHITE Nursing and Triage Documentation Reviewed and Agree: Yes Opioid Naive vs. Tolerant What is Opioid Naive?: *Opioid Naive implies the patient is not already taking opioids or not chronically receiving opioids on a daily basis. *PRN dosing is not "usually" associated with tolerance. *Patients are at higher risk of over-sedation and aspiration. What is Opioid Tolerant?: *Opioid Tolerance implies less than the expected response to an opioid. *Acquired tolerance is defined by the patient taking 60mg of oral morphine daily (or equianalgesic dose of another opioid) for 1 week or more. *Often associated with chronic pain. *May take more than usual dose to achieve desired pain control. Review of Systems Review Of Systems Constitutional: Reports Malaise All Other Systems: Reviewed and Negative [facility] Medical History Chronic pain G89.29 - Other chronic pain (ICD-10) Anxiety F41.9 - Anxiety disorder, unspecified (ICD-10) Hypertension I10 - Essential (primary) hypertension (ICD-10) Social History Smoking and tobacco status: Current every day smoker Tobacco type: cigarettes Smoking packs per day: 1 Smoking cigarettes per day: 20.0 Years smoked: 46 Smoking pack-years: 46.00 Tobacco: How many years used: 46 Passive smoking exposure: No Quit status: considering quitting Second hand smoke exposure: No Smoking risk assessment performed: Yes Alcohol intake: former Year quit: 2004 Counseling given: No Counseling provided: none Substance use type: does not use Caregiver/support person: Yes Marital status: M Number of children: 6 Number of grandchildren: 16 Highest education level completed: high school graduate Surgical History H/O rotator cuff surgery Right Z98.890 - Other specified postprocedural states (ICD-10) No history of previous surgery Physical Exam Physical Exam Appearance: Reports Ill-appearing Ill-appearing: Mild Respiratory: Reports Breath sounds diminished and Wheezes Cardiovascular: Reports RRR, Pulses normal, No rub and No murmur GI/: Reports Soft, Nontender, No masses and Bowel sounds normal Musculoskeletal: Reports Normal strength and ROM intact Skin: Reports Warm and Normal color Neurological: Reports Sensation intact and Motor intact Psychiatric: Reports Affect appropriate Procedures Intubation Indication: Present Respiratory Insufficiency (Worsening respiratory acidosis) Time of Intubation: 17:45 Medications: Yes Succinylcholine and Other (Etomidate) Type of Tube Used: Endotracheal Tube Size: 6.5 Cricoid Pressure Used: No Tube Odom Used: Yes Position of Tube at Lip: 19-cm Number of Attempts: 1 Suction Used: No Glidescope Used: Yes CO2 Detector Used: Yes Lung Sounds Equal Bilaterally: Yes Intubation Complications: Present No complications Tube Inserted By: Dr. Tate Tube Placement Verified by X-ray: Yes Progress/Xray Impression: Endotracheal tube with distal tip terminating 5.1 cm above the evette. Course Course 03/28/25 08:13 03/28/25 08:13 Orders, Labs, Meds: Lab Review 03/28/25 03/28/25 03/28/25 08:00 08:07 08:13 WBC 16.02 H RBC 4.70 Hgb 13.3 Hct 41.4 MCV 88.1 MCH 28.3 MCHC 32.1 RDW Coeff of Sammie 14.4 Plt Count 306 Immature Gran % (Auto) 0.7 Neut % (Auto) 81.8 H Lymph % (Auto) 7.6 L [place] % (Auto) 9.0 Eos % (Auto) 0.2 Baso % (Auto) 0.7 Neut # (Auto) 13.1 H Lymph # (Auto) 1.2 [place] # (Auto) 1.4 Eos # (Auto) 0.0 Baso # (Auto) 0.1 Immature Gran # (Auto) 0.1 Puncture Site [place] Excess -0.5 O2 Saturation 73.9 L ABG pH 7.36 ABG pCO2 44.0 ABG pO2 41.0 L* ABG HCO3 24.9 ABG Total CO2 26.3 H Flash Test Pos Hemoglobin 1.5 Oxyhemoglobin 71.7 L Carboxyhemoglobin 4.9 H Total Hemoglobin 13.8 FiO2 % 21.0 Sodium 128.9 L Potassium 3.96 Chloride 86.2 L Carbon Dioxide 29.1 Anion Gap 17.56 BUN 30.3 H Creatinine 1.39 H Estimated GFR (MDRD) 39.00 BUN/Creatinine Ratio 21.79 Glucose 158.2 H Serum Osmolality 271.0 L Calcium 9.51 Total Bilirubin 0.64 AST 41.8 H ALT 30.4 Alkaline Phosphatase 147.8 H Troponin I 0.025 NT-Pro-B Natriuret Pep Total Protein 8.15 Albumin 4.51 Globulin 3.64 Albumin/Globulin Ratio 1.23 Procalcitonin 0.60 H SARS CoV-2 RNA Rapid MARIE 03/28/25 03/28/25 08:50 09:25 WBC RBC Hgb Hct MCV MCH MCHC RDW Coeff of [place] Plt Count Immature Gran % (Auto) Neut % (Auto) Lymph % (Auto) [place] % (Auto) Eos % (Auto) Baso % (Auto) Neut # (Auto) Lymph # (Auto) [place] # (Auto) Eos # (Auto) Baso # (Auto) Immature Gran # (Auto) Puncture Site Base Excess O2 Saturation ABG pH ABG pCO2 ABG pO2 ABG HCO3 ABG Total CO2 Flash Test Hemoglobin Oxyhemoglobin Carboxyhemoglobin Total Hemoglobin FiO2 % Sodium Potassium Chloride Carbon Dioxide Anion Gap BUN Creatinine Estimated GFR (MDRD) BUN/Creatinine Ratio Glucose Serum Osmolality Calcium Total Bilirubin AST ALT Alkaline Phosphatase Troponin I NT-Pro-B Natriuret Pep 1710 H Total Protein Albumin Globulin Albumin/Globulin Ratio Procalcitonin SARS CoV-2 RNA Rapid MARIE Negative Orders Category Date Time Status ABG DRAW REQUEST Stat CARDIO 03/28/25 08:00 Completed EKG-(ED ONLY) Stat CARDIO 03/28/25 08:08 Completed NEBULIZER TREATMENT Stat CARDIO 03/28/25 07:59 Completed NPO REMINDER: IMAGING ONCE CARE 03/28/25 09:22 Active IV [ED IV/MEDIPORT/POWERPORT] .ONCE EMERGENCY 03/28/25 07:59 Active ABG COOX Stat LAB 03/28/25 08:07 Completed CBC W/ AUTO DIFF Stat LAB 03/28/25 08:13 Completed CMP [COMPREHENSIVE METABOLIC PANEL] Stat LAB 03/28/25 08:13 Completed PROBNP ED [NT-PROBNP(ED)] Stat LAB 03/28/25 08:50 Completed SARS COV-2 RNA RAPID MARIE Stat LAB 03/28/25 09:25 Completed TROPONIN I Stat LAB 03/28/25 08:13 Completed 0.9 % Sodium Chloride [Saline Flush] Meds 03/28/25 07:59 Active 1 syr IVF PRN PRN Iodixanol [Visipaque 320 mg/ml 100Ml] Meds 03/28/25 09:42 Discontinued 100 ml IVP ONCE ONE Ipratropium/Albuterol Neb [Duoneb] Meds 03/28/25 07:59 Discontinued 3 ml NEB ONCE STA Levofloxacin/D5w [Levaquin 500 mg/100 ml D5w] Meds 03/28/25 08:06 Discontinued 500 mg in 100 ml IV ONCE Methylprednisolone Sod Succ/Pf [Solu-Medrol 125 mg] Meds 03/28/25 07:59 Discontinued 125 mg IVP ONCE ONE Sodium Chloride 0.9% [Sodium Chloride] 1,000 ml Meds 03/28/25 08:47 Discontinued IV BOLUS CTA CHEST PE PROTOCOL Stat RADS 03/28/25 09:21 Completed CXR [CHEST, 1V AP ONLY] Stat RADS 03/28/25 07:59 Completed Medications Generic Name Dose Route Start Last Admin Trade Name Freq PRN Reason Stop Dose Admin Hydrocodone Bitart/Acetaminophen 1 tab 03/28/25 12:26 Hydrocodone Bit/Acetaminophen 10/325 Mg Tablet PO On Hold: 03/28/25 12:26 QID PRN Pain Albuterol Sulfate 2.5 mg 03/28/25 11:52 Albuterol Sulfate 0.083% Vial.Neb NEB RTQ4H PRN Wheezing Albuterol/Ipratropium 3 ml 03/28/25 12:00 03/28/25 18:38 Ipratropium/Albuterol Vial.Neb NEB Not Given RTQ4H JANET Amlodipine Besylate 2.5 mg 03/29/25 09:00 Amlodipine Besylate 5 Mg Tablet PO DAILY JANET Aripiprazole 2.5 mg 03/29/25 09:00 Aripiprazole 5 Mg Tablet PO DAILY JANET Diazepam 5 mg 03/28/25 15:00 Diazepam 5 Mg Tablet PO On Hold: 03/28/25 15:00 TID JANET Duloxetine HCl 120 mg 03/28/25 21:00 Duloxetine Hcl 30 Mg Capsule. PO BEDTIME JANET Enoxaparin Sodium 40 mg 03/28/25 12:00 03/28/25 14:03 Enoxaparin Sodium 40 Mg/0.4 Ml Syr SUBCUT 40 mg DAILY JANET Administration Gabapentin 600 mg 03/28/25 15:00 Gabapentin 300 Mg Capsule PO On Hold: 03/28/25 15:00 TID JANET CEFTRIAXONE/D5W 1 GM PREMIX 1 gm in 50 mls @ 100 mls/hr 03/28/25 12:30 03/28/25 13:50 Rocephin 1 Gm/50 Ml D5w IV 03/31/25 12:29 100 mls/hr DAILY JANET Administration Sodium Chloride 1,000 mls @ 75 mls/hr 03/28/25 13:00 03/28/25 16:46 Sodium Chloride IV 75 mls/hr .[id number] JANET Administration Doxycycline Hyclate 100 mg/ 100 mls @ 50 mls/hr 03/28/25 21:00 Sodium Chloride IV 03/31/25 20:59 Q12HR JANET Propofol 1,000 mg in 100 mls @ 1.572 mls/hr 03/28/25 18:00 03/28/25 18:11 Diprivan 1,000 Mg/100 Ml Vial IV 5 mcg/kg/min TITRATION JANET 1.6 mls/hr Protocol Administration 5 MCG/KG/MIN Lisinopril 40 mg 03/29/25 09:00 Lisinopril 40 Mg Tablet PO DAILY JANET Methylprednisolone Sodium Succinate 40 mg 03/28/25 16:00 03/28/25 15:31 Methylprednisolone Sod Succ/Pf 40 Mg/Ml Vial IVP 40 mg Q8HR JANET Administration Sodium Chloride 1 syr 03/28/25 07:59 03/28/25 08:53 0.9% Sodium Chloride 10 Ml Disp.Syrin IVF 1 syr PRN PRN Administration To flush IV Discontinued Medications Generic Name Dose Route Start Last Admin Trade Name Freq PRN Reason Stop Dose Admin Albuterol/Ipratropium 3 ml 03/28/25 07:59 03/28/25 08:16 Ipratropium/Albuterol Vial.Neb NEB 03/28/25 08:00 3 ml ONCE STA Administration Etomidate 14 mg 03/28/25 17:58 03/28/25 17:40 Etomidate 40 Mg/20ml Sdv IVP 03/28/25 17:59 14 mg ONCE STA Administration Levofloxacin/Dextrose 500 mg in 100 mls @ 100 mls/hr 03/28/25 08:06 03/28/25 08:11 Levaquin 500 Mg/100 Ml D5w IV 03/28/25 09:05 100 mls/hr ONCE ONE Administration Sodium Chloride 1,000 mls @ 1,000 mls/hr 03/28/25 08:47 03/28/25 10:00 Sodium Chloride IV 03/28/25 09:46 Infused BOLUS ONE Infusion Sodium Chloride 1,000 mls @ 1,000 mls/hr 03/28/25 14:58 03/28/25 15:28 Sodium Chloride IV 03/28/25 15:57 Infused BOLUS ONE Infusion Sodium Chloride 1,000 mls @ 1,000 mls/hr 03/28/25 15:22 03/28/25 15:36 Sodium Chloride IV 03/28/25 16:21 1,000 mls/hr BOLUS ONE Administration Iodixanol 100 ml 03/28/25 09:42 03/28/25 09:43 Iodixanol 320 Mg/Ml 100ml IVP 03/28/25 09:43 100 ml ONCE ONE Administration Methylprednisolone Sodium Succinate 125 mg 03/28/25 07:59 03/28/25 08:11 Methylprednisolone Sod Succ/Pf 125 Mg/2 Ml Vial IVP 03/28/25 08:00 125 mg ONCE ONE Administration Midazolam HCl 5 mg 03/28/25 17:58 03/28/25 18:20 Midazolam Hcl Inj 5 Mg/Ml Vial IVP 03/28/25 17:59 5 mg ONCE ONE Administration Scopolamine HBr 1 patch 03/28/25 18:11 03/28/25 18:15 Scopolamine Hydrobromide 1.5 Mg Patch.Td72 TD 03/28/25 18:12 1 patch ONCE ONE Administration Succinylcholine Chloride 60 mg 03/28/25 17:58 03/28/25 17:40 Succinylcholine Chloride 200 Mg/10 Ml Mdv IVP 03/28/25 17:59 60 mg ONCE ONE Administration Vital Signs: Temp Pulse Resp BP Pulse Ox O2 Flow Rate 03/28/25 08:30 4 03/28/25 08:00 2 03/28/25 07:59 99.0 F 103 H 33 H 109/69 57 L Discharge Plan Discharge Patient Disposition: PLACED OBSERVATION Discharge Problem: Pneumonia, Acute exacerbation of chronic obstructive pulmonary disease (COPD) Did you review [place] [employer] for ALL controlled substances?: Not Applicable ED Provider: MELANIE BHAKTA Condition: Stable
[2025-03-28 18:54] LABS: ABG O2 HGB 93.1 % (95-100); ABG PO2 79.0 mmHg (85-100); BEecf -5.2 (-2.0-3.0); FI02 50.0 %; HCO3 23.5 (21-28); TCO2 25.5 (19-24)
[2025-03-28 18:55] LABS: ABG PCO2 66.0 mmHg (35-45); ABG PH 7.16 (7.35-7.45)
[2025-03-28 19:04] VITALS: RESP 20
--- NOTE | 2025-03-28 19:44 | DI ---
EXAM: FRONTAL VIEW OF THE CHEST. HISTORY: NG tube placement. COMPARISON: 03/28/2025, 1742 hours FINDINGS: Endotracheal tube is 5 cm above the evette. Nasogastric tube visualized over the course of the thoracic esophagus. There appears to be a coil of tubing over the lower cervical region. Tube may be coiled in the neck or oral cavity. Cardiac silhouette is normal. Chronic-appearing pulmonary interstitial findings. No visible effusion or pneumothorax. No acute osseous abnormality. IMPRESSION: 1. No NG tube within the thoracic esophagus.
[2025-03-28] MEDS: DOXY-100 100 MG in SODIUM CHLORIDE 100ML 100 ML IV SCH (20:03)
[2025-03-28] MEDS ORDERED: ZEMURON IVP STA (20:06)
[2025-03-28] MEDS: ZEMURON IVP STA (20:12)
[2025-03-28] MEDS: VERSED IVP STA (20:13)
[2025-03-28 20:26] VITALS: BP 120/75; PULSE 82; TEMP 97.5
--- NOTE | 2025-03-28 20:55 | DI ---
EXAM: SINGLE VIEW OF THE CHEST HISTORY: NG placement. COMPARISON: Chest x-ray same day FINDINGS: NG tube with the side port left upper abdomen in the tip inferiorly and out of the [id number] likely in the stomach.Otherwise no interval change. IMPRESSION: And G tube with side-port overlying the gastric body and the tip inferior in the upper abdomen not visualized. This is likely in the gastric body.
[2025-03-28] MEDS ORDERED: CYMBALTA PO SCH (21:00)
[2025-03-28] MEDS ORDERED: VIBRAMYCIN PO SCH (21:00)
[2025-03-28] MEDS: SUBLIMAZE IVP ONE (21:05)
[2025-03-29] MEDS ORDERED: ZESTRIL PO SCH (09:00)
[2025-03-29] MEDS ORDERED: NORVASC PO SCH (09:00)
[2025-03-29] MEDS ORDERED: ABILIFY PO SCH (09:00)
== END 2025-03-28 21:05 | disposition short-term general hospital (02) | DRG 194 ==
LOC: ED 07:51 → MEDSURG B 07:51 → OBSVTOIN 10:34 → MEDSURG B 11:49
PROVIDERS: ADMIT Hospitalist; ATTEND Nurse Practitioner Family